=== PATIENT | female | born 1960 | race Caucasian/White ===

== ENCOUNTER 2016-10-22 07:30 | Inpatient (IN) | payer OTHER ==
[~2016-10-22] VITALS: Ht 160 cm; Wt 48.6 kg
[2016-11-02] VITALS (23 sets, daily range): BP systolic 98–146; BP diastolic 45–86; PULSE 65–114; RESP 16–61; Ht 160 cm; Wt 48.6 kg
[2016-11-02] MEDS ORDERED: NEOSTIGMINE 3 MG/3 ML SYRINGE ONE (07:00)
[2016-11-02] MEDS ORDERED: GLYCOPYRROLATE 1 MG INJ ONE (07:00)
[2016-11-02] MEDS ORDERED: PROPOFOL 100 ML ONE (10:46)
[2016-11-02] MEDS ORDERED: ROCURONIUM 50 MG INJ ONE (10:46)
[2016-11-02] MEDS ORDERED: MIDAZOLAM 1 MG/ML 2 ML INJ ONE (10:46)
--- NOTE | 2016-11-02 12:17 | HP ---
DATE OF ADMISSION: 11/02/2016 HISTORY OF PRESENT ILLNESS: Patient is approximately 55 years of age, was seen in the office for ev aluation of neck pain, pain going to her shoulders, herm arms with weakness in the arms and numbness in her fingers for the last 3 digits on both sides. She denied any gait imbalance. Denied any uri nary or bowel incontinence or retention. According to the patient, the pain was getting much worse. Outpatient management was offered to the patient in the form of conservative management. She had physical therapy. She had pain management as well as epidural injections of the cervical spine with out much benefit. Her pain was getting worse. Condition was getting worse. Patient wanted some mo re definite ____ to be done. Surgical intervention was entertained. The patient wanted something d efinitely to be done about this and was thinking about surgical intervention. PAST MEDICAL HISTORY: Unremarkable. SURGICAL HISTORY: Per chart. SOCIAL HISTORY: Denies any drugs, alcohol or tobacco. ALLERGIES: PER CHART. MEDICATIONS: Taken at home per chart. FAMILY HISTORY: Unremarkable. REVIEW OF SYSTEMS: Additional 10-point review of systems conducted. Pertinent positive in HPI, oth erwise negative. PHYSICAL EXAMINATION: GENERAL: The patient is awake, alert, oriented, follows commands properly. HEENT: Head is atraumatic, normocephalic. clear, nonicteric. EOMs intact. Pupils equal, reactive . Nose, sinuses, mouth no lesions. No bleeding. NECK: Supple, no thyromegaly, no JVD. CHEST: No accessory muscle use. She is complaining of dyspnea and tachypnea. HEART: No JVD. EXTREMITIES: No pedal edema. ABDOMEN: Soft without guarding. NEUROLOGIC: ____Patient is awake, alert. Cranial nerves I through XII intact. GCS is 15. Upper e xtremity examination, she has weakness in both of her upper extremities, but 4/5 muscle strength in her shoulders, biceps, triceps, wrist extensors and flexors. Sensation is intact throughout. The l ower extremity examination is unremarkable. MRI dated 06/19/2015 shows severe cervical stenosis C5 to C6, C6 to C7 with evidence of cord jelena fiona at C6 to C7. Recommendation at this point is for patient to undergo surgical decompression of the cervical spine. The formal partial vertebrectomy with interbody fusion and plating anterior gilda kaufman at C5 to C6, C6 to C7. Unfortunately, the patient has failed conservative management, has keyanna led outpatient therapy. The condition is getting worse. MRI shows worsening of her cervical stenos is with early cord compression. Patient has evidence of radiculopathy and evidence of myelopathy. The only option left hip at this point is her surgical decompression of the cervical spine. Preoper ative was performed. The patient has been cleared for surgery will be admitted to the [facility] for further care and management. Dictated By: ABBY HANSON for MAHAD HENDRIX MD AA/HALI Conf#: [id number] DID#: [id number]
[2016-11-02] MEDS ORDERED: POLYMYXIN/BACITRACIN 1L IRRIG ONE (12:44)
[2016-11-02] MEDS ORDERED: THROMBIN 5000 UNIT VIAL ONE (12:44)
[2016-11-02] MEDS ORDERED: LIDOCAINE 0.5%/EPI (MDV) 50 ML INJ ONE (12:44)
[2016-11-02] MEDS ORDERED: GELATIN SIZE 100 SPONGE ONE (12:44)
--- NOTE | 2016-11-02 13:05 | HPN ---
Date/Time of Note Date/Time of Note DATE: 11/02/16 TIME: 13:04 Interval H&P Admission Note Pt. seen H&P reviewed: No system changes MAHAD HENDRIX MD Nov 02, 2016 13:05
[2016-11-02] MEDS ORDERED: LABETALOL HCL 20MG INJ ONE ×2 (13:27→13:55)
[2016-11-02] MEDS ORDERED: MISO100T PO (13:42)
[2016-11-02] MEDS ORDERED: CITA20TA6 PO (13:42)
[2016-11-02] MEDS ORDERED: ALEN70TA30 PO (13:42)
[2016-11-02] MEDS ORDERED: VIT D PO (13:42)
[2016-11-02] MEDS ORDERED: MEDR2.5T21 PO (13:42)
[2016-11-02] MEDS ORDERED: GABA300C16 PO (13:42)
[2016-11-02] MEDS ORDERED: OMEP40CA6 PO (13:42)
[2016-11-02] MEDS ORDERED: INDO25CA25 PO (13:42)
[2016-11-02] MEDS ORDERED: ESTR1TAB23 PO (13:42)
[2016-11-02] MEDS ORDERED: GNP VIT D PO (13:42)
[2016-11-02] MEDS ORDERED: IBUP-1542 PO (13:42)
[2016-11-02] MEDS ORDERED: PHENYLephrine 10 MG INJ ONE (13:53)
[2016-11-02] MEDS ORDERED: METOCLOPRAMIDE 10 MG INJ ONE (14:00)
[2016-11-02] MEDS ORDERED: CEFAZOLIN 1 GM INJ ONE (14:00)
[2016-11-02] MEDS ORDERED: ONDANSETRON 4 MG INJ ONE (14:00)
[2016-11-02] MEDS ORDERED: DEXAMETHASONE 4 MG/ML 1 ML INJ ONE (14:00)
[2016-11-02] MEDS ORDERED: PHENYLephrine (100 MCG/ML) 5ML SYG ONE (14:12)
[2016-11-02] MEDS ORDERED: HYDROmorphONE (0.2 MG/ML) 10ML SYG IV PRN ×2 (14:30)
[2016-11-02] MEDS ORDERED: LABETALOL HCL 20MG INJ IV PRN (14:30)
[2016-11-02] MEDS ORDERED: hydrALAzine 20 MG INJ IV PRN (14:30)
[2016-11-02] MEDS ORDERED: ALBUMIN HUMAN 5% 250 ML IV PRN (14:30)
[2016-11-02] MEDS ORDERED: morphine (1 MG/ML) 10ML SYRINGE IV PRN ×3 (14:30)
[2016-11-02] MEDS ORDERED: EPHEDrine SULFATE 50 MG/5 ML SYG IV PRN (14:30)
[2016-11-02] MEDS ORDERED: ONDANSETRON 4 MG INJ IV PRN ×2 (14:30→15:30)
[2016-11-02] MEDS ORDERED: hydrALAzine 20 MG INJ ONE (15:05)
--- NOTE | 2016-11-02 15:27 | RADRPT ---
PROCEDURE: Intraoperative fluoroscopy. CLINICAL INDICATION: Intraoperative fluoroscopy during C5 - C7 fusion. TECHNIQUE: 6 spot intraoperative fluoroscopic images were provided. The images were reviewed on a high-resolution PACS workstation. COMPARISON: None available FINDINGS: Multiple spot intraoperative fluoroscopic views were provided during C5- C7 fusion. The images demo nstrate there is a metallic probe at the level of C6. There is subsequent placement of anterior noel tebral body screws at C5, C6 and C7 with associated anterior spinal fusion plate and intervertebral disc-spacers. The total fluoroscopy time was 6.5 seconds. IMPRESSION: 1. Multiple spot intraoperative fluoroscopic views during C5-C7 fusion were provided. 2. Please see operative report of the same day for further information. RPTAT: HGAS .Jeb Wilhelm MD, Date Time Electronically viewed and signed by .Jeb Wilhelm MD, on 11/02/2016 15:26 .S/
[2016-11-02] MEDS ORDERED: morphine 2 MG INJ IV PRN (15:30)
[2016-11-02] MEDS: HYDROmorphONE (0.2 MG/ML) 10ML SYG IV PRN ×2 (15:45→16:00)
[2016-11-02 15:50] LABS: ADD UMIC YES; URINE BILIRUBIN (Dip) NEGATIVE (NEGATIVE); URINE BLOOD (Dip) TRACE (NEGATIVE); URINE COLOR YELLOW (YELLOW); URINE GLUCOSE (Dip) NEGATIVE (NEGATIVE); URINE KETONES (Dip) 15 (NEGATIVE); URINE LEUKOCYTE ESTERASE (Dip) NEGATIVE (NEGATIVE); URINE NITRITE (Dip) NEGATIVE (NEGATIVE); URINE TOTAL PROTEIN (Dip) TRACE (NEGATIVE); URINE UROBILINOGEN (Dip) 0.2 E.U./dL (0.1-1.0)
[2016-11-02 16:09] LABS: BACTERIA,URINE FEW; MUCUS,URINE FEW
[2016-11-02] MEDS ORDERED: DIAZEPAM 5 MG TAB PO ONE (18:30)
[2016-11-02] MEDS: morphine 2 MG INJ IV PRN (21:13)
[2016-11-02] MEDS: INDOMETHACIN 25 MG PO SCH (21:53)
[2016-11-02] MEDS: GABAPENTIN 300 MG CAP PO SCH (21:53)
[2016-11-02] MEDS: MISOPROSTOL 100 MCG TAB PO SCH (21:56)
[2016-11-02] MEDS: HYDROCODONE/APAP (7.5/325) TAB PO PRN (21:59)
[2016-11-02] MEDS: ALPRAZOLAM 1 MG TAB PO PRN (22:52)
[2016-11-02] MEDS: CEFAZOLIN 1 GM/50 ML (PMX) 50 ML IVPB SCH (22:56)
[2016-11-03 00:05] VITALS: BP 123/58; PULSE 69; RESP 18
[2016-11-03] MEDS: morphine 2 MG INJ IV PRN ×4 (03:00→19:47)
[2016-11-03 04:00] VITALS: BP 125/59; PULSE 67; RESP 18
[2016-11-03] MEDS: CEFAZOLIN 1 GM/50 ML (PMX) 50 ML IVPB SCH ×3 (06:12→21:17)
[2016-11-03] MEDS: PANTOPRAZOLE (EC) 40 MG TAB PO SCH (06:12)
[2016-11-03] MEDS: HYDROCODONE/APAP (7.5/325) TAB PO PRN ×3 (06:12→21:16)
[2016-11-03 07:42] VITALS: BP 133/76; RESP 16
[2016-11-03] MEDS ORDERED: ACETAMINOPHEN 500 MG TAB PO PRN (08:30)
[2016-11-03] MEDS: ALPRAZOLAM 1 MG TAB PO PRN ×3 (08:46→22:46)
[2016-11-03] MEDS: INDOMETHACIN 25 MG PO SCH ×2 (08:46→19:48)
[2016-11-03] MEDS: MEDROXYPROGESTERONE 2.5 MG TAB PO SCH (08:46)
[2016-11-03] MEDS: ESTRADIOL 1 MG TAB PO SCH (08:46)
[2016-11-03] MEDS: CITALOPRAM 20 MG TAB PO SCH (08:47)
[2016-11-03] MEDS: MISOPROSTOL 100 MCG TAB PO SCH (08:49)
[2016-11-03] MEDS: GABAPENTIN 300 MG CAP PO SCH ×3 (08:51→19:48)
[2016-11-03] MEDS ORDERED: NON-FORMULARY/PATIENT OWN MED (Omeprazole* 40 MG) PO SCH (09:00)
--- NOTE | 2016-11-03 09:39 | HP ---
DATE OF ADMISSION: 11/02/2016 HISTORY OF PRESENT ILLNESS: The patient is a 55-year-old female with history of chronic neck pain r adiating to the shoulder with weakness and numbness in her fingers for mainly the last 3 digits of her hand. The patient was seen by Dr. Johnson as an outpatient and MRI back in 2014 revealed severe cervical stenosis at C5-C6, C6-C7 with evidence of cord compression at C6-C7. The patient failed outpatient therapy and was brought into the hospital and underwent pa rtial vertebrectomy and interbody fusion and plating by anterior approach. The patient prior to nelson t was able to ambulate and there was no urinary or bowel incontinence or retention. The patient did not have any abdominal pain. The patient does have history of anxiety and depression. The patient is being admitted for further evaluation and management. REVIEW OF SYSTEMS: Other than postoperative pain and anxiety and rest of the review of systems unre markable. The patient does not have any cough, chest congestion. No history of chest pain, no hist ory of abdominal pain, no history of vomiting or diarrhea. No history of any acute joint swelling. PAST SURGICAL HISTORY: None. ALLERGIES: NONE. SOCIAL HISTORY: The patient used to smoke a pack per day and has been smoking for more than 30 year s, but states that she has cut down. No significant alcohol abuse. FAMILY HISTORY: Noncontributory. PHYSICAL EXAMINATION: GENERAL: The patient is conscious, awake, alert, fairly oriented. VITAL SIGNS: Temperature 98.2, pulse 95, respirations 16, blood pressure 133/73, O2 saturation 97% on 2 liters nasal cannula. HENT: Conjunctivae and lids are normal. Nose and ears normal externally. NECK: Examination deferred due to C-spine collar. CHEST: Clear to auscultation. CARDIOVASCULAR: S1, S2 normal. No murmur. ABDOMEN: Soft, nondistended, nontender. Bowel sounds present. EXTREMITIES: No leg edema. NEUROLOGIC: The patient is awake, alert, fairly oriented with no gross motor deficit. LABORATORY DATA: Sodium 131, potassium 4, BUN 18, creatinine 0.6, glucose 91. AST 19, ALT 10, vick line phosphatase 40. normal. WBC 13.3, hemoglobin 9.8, platelets 282. IMPRESSION: 1. Cervical myelopathy status post surgery. 2. Anxiety and depression. 3. Tobacco abuse. PLAN: The patient admitted on medical floor. The patient will receive IV Ancef as per protocol. T he patient will be started on Celexa and Xanax for her anxiety and depression. The patient will be continued on postmenopausal hormone, which patient says she has been taking for years. Will continu e Indocin and Cytotec for mild pain and morphine IV for moderate to severe pain. The patient will h ave Protonix for GI prophylaxis and SCDs for DVT prophylaxis. Plan of care discussed with nursing s [facility]. Dictated By: ROXANA REY/HALI Conf#: [id number] DID#: [id number]
--- NOTE | 2016-11-03 11:55 | CONS ---
Date/Time of Note Date/Time of Note DATE: 11/03/16 TIME: 11:51 Assessment/Plan Assessment/Plan Additional Assessment/Plan seen/examined c5-7 partial vertebrectomy with diskectomy with fusion awake/alert/follows/moves all/sensation intact wound looks good pt ambulating good may leave in 24 hrs outpt fu 1 week Consultation Date/Type/Reason Admit Date/Time Nov 02, 2016 at 11:12 Initial Consult Date Exam/Review of Systems Vital Signs Vitals Vital Signs Date Time Temp Pulse Resp B/P Pulse Ox O2 Delivery O2 Flow Rate FiO2 11/03/16 07:42 98.2 95 16 133/76 97 11/03/16 04:00 Nasal Cannula 2.0 Intake and Output 11/02/16 11/02/16 11/03/16 15:00 23:00 07:00 Intake Total 1300 ml 520 ml 1700 ml Output Total 400 ml 1500 ml Balance 1300 ml 120 ml 200 ml Results Results 24 hrs Laboratory Tests Test 11/02/16 13:30 Urine Bacteria FEW Urine Bilirubin NEGATIVE Urine Clarity CLEAR Urine Color YELLOW Urine Epithelial Cells FEW Urine Glucose NEGATIVE Urine Hemoglobin TRACE Urine Ketones 15 Urine Leukocyte Esterase NEGATIVE Urine Microscopic RBC 2-5 Urine Microscopic WBC 0-2 Urine Mucus FEW Urine Nitrite NEGATIVE Urine Specific Paola >=1.030 H Urine Total Protein TRACE Urine Urobilinogen 0.2 E.U./dL Urine pH 6.0 Medications Medications Current Medications Cefazolin Sodium (Ancef 1 Gm/50 ml (Pmx)) 50 ml @ 100 mls/hr Q8 IVPB Last administered on 11/03/16 06:12; Admin Dose 100 MLS/HR; Start 11/02/16 at 22:00 ; Stop 11/03/16 at 22:00 Ondansetron HCl (Zofran Inj) 4 mg Q6H PRN IV NAUSEA AND/OR VOMITING; Start at 15:30 Morphine Sulfate (morphine) 1 mg Q2H PRN IV mod pain; Start 11/02/16 at 15:30 Morphine Sulfate (morphine) 2 mg Q4H PRN IV severe pain Last administered on 09:16; Admin Dose 2 MG; Start 11/02/16 at 15:30 Acetaminophen/ Hydrocodone Bitart (Armstrong (7.5-325)) 1 tab Q4H PRN PO mild to mod Last administered on 11/03/16 06:12; Admin Dose 1 TAB; Start 11/02/16 at 15 :30 Citalopram Hydrobromide (Celexa) 10 mg DAILY PO Last administered on 11/03/16 08:47; Admin Dose 10 MG; Start 11/03/16 at 09:00 Estradiol (Estrace) 1.5 mg DAILY PO Last administered on 11/03/16 08:46; Admin Dose 1.5 MG; Start 11/03/16 at 09:00 Gabapentin (Neurontin) 300 mg TID PO Last administered on 11/03/16 08:51; Admin Dose 300 MG; Start 11/02/16 at 21:00 Indomethacin (Indocin) 75 mg BID PO Last administered on 11/03/16 08:46; Admin Dose 75 MG; Start 11/02/16 at 21:00 Medroxyprogesterone Acetate (Provera) 2.5 mg DAILY PO Last administered on 11/03 08:46; Admin Dose 2.5 MG; Start 11/03/16 at 09:00 Misoprostol (Cytotec) 100 mcg BID PO Last administered on 11/03/16 08:49; Admin Dose 100 MCG; Start 11/02/16 at 21:00 Pantoprazole (Protonix Tab) 40 mg DAILY@06 PO Last administered on 11/03/16 06 :12; Admin Dose 40 MG; Start 11/03/16 at 06:00 Alprazolam (Xanax) 1 mg Q6H PRN PO ANXIETY Last administered on 11/03/16 08:46 ; Admin Dose 1 MG; Start 11/02/16 at 22:30 Acetaminophen (Tylenol Tab) 500 mg Q4H PRN PO PAIN AND OR ELEVATED TEMP; Start 11/03/16 at 08:30 ABBY SANCHES PA-C Nov 03, 2016 11:54
[2016-11-03 20:00] VITALS: BP 154/67; RESP 18
[2016-11-03] MEDS: MISOPROSTOL 200 MCG TAB PO SCH (21:16)
[2016-11-04] MEDS: morphine 2 MG INJ IV PRN ×3 (00:49→12:18)
[2016-11-04] MEDS: PANTOPRAZOLE (EC) 40 MG TAB PO SCH (04:11)
[2016-11-04] MEDS: HYDROCODONE/APAP (7.5/325) TAB PO PRN ×2 (04:11→09:34)
[2016-11-04 05:05] LABS: ADD SCAN DIFF NO
[2016-11-04 05:10] LABS: BASOPHIL # 0.1 10^3/ul (0.0-0.1); BASOPHILS % 0.6 % (0.0-2.0); EOSINOPHILS # 0.2 10^3/ul (0.0-0.5); EOSINOPHILS % 1.9 % (0.0-7.0); HEMATOCRIT 31.6 % (37.0-47.0); HEMOGLOBIN 10.2 g/dl (12.0-16.0); LYMPHOCYTES # 3.9 10^3/ul (0.8-2.9); LYMPHOCYTES % 39.7 % (15.0-51.0); MEAN CORPUSCULAR HEMOGLOBIN 32.9 pg (29.0-33.0); MEAN CORPUSCULAR HGB CONC 32.3 g/dl (32.0-37.0); MEAN CORPUSCULAR VOLUME 101.9 fl (82.0-101.0); MEAN PLATELET VOLUME 11.3 fl (7.4-10.4); MONOCYTES % 10.6 % (0.0-11.0); NEUTROPHIL # 4.6 10^3/ul (1.6-7.5); NEUTROPHILS % 46.9 % (39.0-77.0); PLATELET COUNT 195 10^3/UL (140-415); RED CELL DISTRIBUTION WIDTH 13.7 % (11.5-14.5); WHITE BLOOD COUNT 9.9 10^3/ul (4.8-10.8)
[2016-11-04 05:29] LABS: POTASSIUM 4.6 mmol/L (3.5-5.1)
[2016-11-04 05:32] LABS: CALCIUM 7.9 mg/dl (8.4-10.2); CREATININE 0.52 mg/dl (0.44-1.00)
[2016-11-04 08:38] VITALS: BP 137/64; RESP 18
[2016-11-04] MEDS: GABAPENTIN 300 MG CAP PO SCH ×2 (09:25→12:18)
[2016-11-04] MEDS: ESTRADIOL 1 MG TAB PO SCH (09:25)
[2016-11-04] MEDS: MISOPROSTOL 200 MCG TAB PO SCH (09:26)
[2016-11-04] MEDS: CITALOPRAM 20 MG TAB PO SCH (09:26)
[2016-11-04] MEDS: INDOMETHACIN 25 MG PO SCH (09:26)
[2016-11-04] MEDS: MEDROXYPROGESTERONE 2.5 MG TAB PO SCH (09:26)
[2016-11-04] MEDS: ALPRAZOLAM 1 MG TAB PO PRN (09:34)
--- NOTE | 2016-11-04 10:14 | CONS ---
Date/Time of Note Date/Time of Note DATE: 11/04/16 TIME: 10:12 Assessment/Plan Assessment/Plan Additional Assessment/Plan seen/examined awake/alert/follows/sensation intact wound looks good pt may go home outpt fu 1 week keep brace on Consultation Date/Type/Reason Admit Date/Time Nov 02, 2016 at 11:12 Exam/Review of Systems Vital Signs Vitals Vital Signs Date Time Temp Pulse Resp B/P Pulse Ox O2 Delivery O2 Flow Rate FiO2 11/04/16 08:38 97.6 101 18 137/64 94 11/03/16 04:00 Nasal Cannula 2.0 Intake and Output 11/03/16 11/03/16 11/04/16 15:00 23:00 07:00 Intake Total 50 ml 1090 ml 1500 ml Output Total 500 ml 1400 ml Balance 50 ml 590 ml 100 ml Results Result Diagram: 11/04/16 0439 11/04/16 0439 Results 24 hrs Laboratory Tests Test 11/04/16 04:39 Anion Gap 10 Basophils # 0.1 Basophils % 0.6 Blood Urea Nitrogen 11 Calcium Level 7.9 L Carbon Dioxide Level 27 Chloride Level 106 Creatinine 0.52 Eosinophils # 0.2 Eosinophils % 1.9 Glucose Level 110 Hematocrit 31.6 L Hemoglobin 10.2 L Lymphocytes # 3.9 H Lymphocytes % 39.7 Mean Corpuscular Hemoglobin 32.9 Mean Corpuscular Hemoglobin Concent 32.3 Mean Corpuscular Volume 101.9 H Mean Platelet Volume 11.3 H Monocytes # 1.0 H Monocytes % 10.6 Neutrophils # 4.6 Neutrophils % 46.9 Nucleated Red Blood Cells # 0.0 Nucleated Red Blood Cells % 0.0 Platelet Count 195 Potassium Level 4.6 Red Blood Count 3.10 L Red Cell Distribution Width 13.7 Sodium Level 138 White Blood Count 9.9 Medications Medications Current Medications Ondansetron HCl (Zofran Inj) 4 mg Q6H PRN IV NAUSEA AND/OR VOMITING; Start at 15:30 Morphine Sulfate (morphine) 1 mg Q2H PRN IV mod pain; Start 11/02/16 at 15:30 Morphine Sulfate (morphine) 2 mg Q4H PRN IV severe pain Last administered on t 06:38; Admin Dose 2 MG; Start 11/02/16 at 15:30 Acetaminophen/ Hydrocodone Bitart (Cypress (7.5-325)) 1 tab Q4H PRN PO mild to mod Last administered on 11/04/16 09:34; Admin Dose 1 TAB; Start 11/02/16 at 15 :30 Citalopram Hydrobromide (Celexa) 10 mg DAILY PO Last administered on 11/04/16 09:26; Admin Dose 10 MG; Start 11/03/16 at 09:00 Estradiol (Estrace) 1.5 mg DAILY PO Last administered on 11/04/16 09:25; Admin Dose 1.5 MG; Start 11/03/16 at 09:00 Gabapentin (Neurontin) 300 mg TID PO Last administered on 11/04/16 09:25; Admin Dose 300 MG; Start 11/02/16 at 21:00 Indomethacin (Indocin) 75 mg BID PO Last administered on 11/04/16 09:26; Admin Dose 75 MG; Start 11/02/16 at 21:00 Medroxyprogesterone Acetate (Provera) 2.5 mg DAILY PO Last administered on 11/04 09:26; Admin Dose 2.5 MG; Start 11/03/16 at 09:00 Pantoprazole (Protonix Tab) 40 mg DAILY@06 PO Last administered on 11/04/16 04 :11; Admin Dose 40 MG; Start 11/03/16 at 06:00 Alprazolam (Xanax) 1 mg Q6H PRN PO ANXIETY Last administered on 11/04/16 09:34 ; Admin Dose 1 MG; Start 11/02/16 at 22:30 Acetaminophen (Tylenol Tab) 500 mg Q4H PRN PO PAIN AND OR ELEVATED TEMP; Start 11/03/16 at 08:30 Misoprostol (Cytotec) 100 mcg BID PO Last administered on 11/04/16 09:26; Admin Dose 100 MCG; Start 11/03/16 at 21:30 ABBY SANCHES PA-C Nov 04, 2016 10:14
--- NOTE | 2016-11-06 01:54 | DS ---
DATE OF ADMISSION: 11/02/2016 DATE OF DISCHARGE: 11/04/2016 DISCHARGE DIAGNOSES: 1. Cervical myelopathy, status post surgery. 2. Anxiety and depression. DISCHARGE MEDICATIONS: The patient to resume home medication as before. REASON FOR ADMISSION: The patient is a 55-year-old female with history of cervical spinal stenosis leading to neck pain radiating to shoulder and weakness and numbness in her fingers. The patient un derwent MRI of C-spine and was followed by Dr. Johnson as an outpatient. The patient was diagnosed with cervical myelopathy and underwent partial vertebrectomy and interbody fusion and plating by ant erior approach. The patient's postop course was uncomplicated, and on the day of discharge, the pat yosint's vital signs are stable. The patient was cleared for discharge by Booker Mathew. The damien menendez will have outpatient followup in 1 week. Neck brace was given to the patient. CONDITION ON DISCHARGE: Stable. LABORATORIES ON THE DAY OF DISCHARGE: WBC 9.9, hemoglobin 10.2, platelets 195. Sodium 138, potassi um 4.6, BUN 11, creatinine 0.5. Dictated By: ROXANA REY/NTS Conf#: [id number] DID#: [id number]
--- NOTE | 2016-11-07 10:43 | OPR ---
DATE OF OPERATION: 11/02/2016 PREOPERATIVE DIAGNOSES: 1. Cervical radiculopathy. 2. 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 POSTOPERATIVE DIAGNOSES: 1. Cervical radiculopathy. 2. 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 PROCEDURE: 1. C5 partial vertebrectomy, anterior approach, CPT 51217. 2. C6-C7 additional 2-level anterior partial vertebrectomy, cervical spine, CPT 11249 x2. 3. C5-C6 anterior cervical interbody arthrodesis, CPT 84129. 4. C6-C7 anterior cervical interbody arthrodesis, CPT 72969. 5. C5-C6 and C6-C7 anterior cervical instrumentation utilizing anterior cervical locking plate prov ided by [employer], CPT 82661 #6, interbody fusion at C5-C6 and C6-C7 with placement of MTF bone allogr aft, preparation of allograft, CPT 43498 x2. SURGEON: Mahad Johnson MD SUPERVISOR WOUND: MARGIE Banks COMPLICATIONS: None. ANESTHESIA: General endotracheal. ESTIMATED BLOOD LOSS: Less than 100. NEEDLE COUNTS AND SPONGE COUNTS: Correct. SPECIMENS: Multiple fragments of the disk and the vertebral body were sent to pathology. INDICATIONS FOR THE OPERATION: The patient is well known to me. The patient has been seen in of [facility] on multiple occasions. The patient has been complaining of neck pain, shoulder pain and arm pa in. She has a C5-C6 and C6-C7 cervical spondylosis. We will proceed with cervical partial vertebre ctomy, anterior approach. Risks and benefits of the operation including anesthesia, infection, blee ding, permanent neurological injury and were explained. The patient agreed to proceed with th e operation and signed the consent. PROCEDURE IN DETAIL: The patient was placed in supine position adequate general endotracheal anesth esia was obtained. . The neck was placed in a semi-extended position with a shoulder roll und er the neck. The anterior cervical spine was prepped and draped in normal sterile fashion, was infiltrated with l idocaine with epinephrine solution. Incision was made after fluoroscopy confirmed our position. In cision was carried past the platysma. Subplatysmal dissection to the anterior cervical fascia, whic h the longus colli muscles were retracted laterally, medially, superiorly and inferiorly with [place] retractors under the longus colli muscles. Following this, diskectomy was started at C5-C6 and C6-C7. The osteophytes were removed with double action rongeur and this was removed with pituitary. Following that, because of the large osteophyt e, I performed a partial vertebrectomy of the inferior 3 mm of the C5, superior 2 mm of the C6, infe rior 3 mm of C6 and superior 3 mm of C7 vertebral body all the way to the posterior longitudinal lig ament, and all the posterior osteophytes were removed with high-speed [place] drill all the way to the posterior longitudinal ligament, which was opened with a curet and was removed with 3-0 Kerriso n punches bilaterally and the medial portion of the joint of Luschka was removed to decompress the n eural foramen and spinal monitoring showed improvement of signal. At this time, I placed an ACF convex graft 9 mm, a total of 2 of them were utilized. They were pack ed with demineralized bone matrix. There were shaped into Mahmood-Ramos anterior cervical interbod y arthrodesis and tapped into place at C5-C6 and C6-C7, achieving arthrodesis at those 2 levels. Following that, an anterior cervical plate that was a Vectra-T plate, 30 mm long, was affixed to the cervical spine to a total of 4 screws. They were 4.0 x 14 and 4.5 x 14 screws. The larger screws were placed superiorly, inferiorly and the medial screws were smaller, 4.0 screws. Everything was t orqued tightened to specification. The closure of the wound at this time was started with irrigatio n of wound with bacitracin saline solution. The tab was removed from the plate. Spinal monitoring showed improvement of signal, fluoroscopy showed good position of the plate. The closure was done w ith 2-0 Vicryl for platysma, 4-0 nylon in a subcuticular fashion for the skin. The patient tolerate d the procedure well, was taken to postanesthesia recovery in stable condition, extubated, following commands, moving all muscle groups of upper and lower extremities. Dictated By: MAHAD ELLIOTT/HALI Conf#: [id number] DID#: [id number]
== END 2016-11-04 14:00 | disposition home or self-care (01) | DRG 472 ==
LOC: EDSTATUS 07:30 → REC 11-02 11:12 → MS1 11-02 16:25
PROVIDERS: ADMIT Internal Medicine; ATTEND Internal Medicine
PROC: 0RG20K0 Fusion of 2 or more Cervical Vertebral Joints with Nonautologous Tissue Substitute, Anterior Approach, Anterior Column, Open Approach (ICD-10-PCS; 2016-11-02)
PROC: 0RB30ZZ Excision of Cervical Vertebral Disc, Open Approach (ICD-10-PCS; 2016-11-02)
PROC: 0RG20A0 Fusion of 2 or more Cervical Vertebral Joints with Interbody Fusion Device, Anterior Approach, Anterior Column, Open Approach (ICD-10-PCS; principal; 2016-11-02 13:00)
DX: M50.022 Cervical disc disorder at C5-C6 level with myelopathy (principal); G95.29 Other cord compression; M48.02 Spinal stenosis, cervical region; R20.2 Paresthesia of skin; Z72.0 Tobacco use; M62.81 Muscle weakness (generalized)
CPT/HCPCS: 72040; 80048; 81001; 81003; 85025; 86850; 86900; 86901; 97163; 97530; J0360; J0690; J1100; J1170; J2250; J2270; J2370; J2405; J2710; J2765; J3010